=== PATIENT | female | born 1995 | race Caucasian/White ===

== ENCOUNTER 2020-09-23 18:27 | Emergency (ER) | payer OTHER, SELFPAY ==
--- NOTE | ~2020-09-23 | US_ITS ---
EXAMINATION: ULTRASOUND PELVIC, COMPLETE CLINICAL INFORMATION: . Vaginal bleeding. Low back pain. COMPARISON: None. TECHNIQUE: Transvaginal: Used to better visualize pelvic structures Transabdominal: Not adequate visualization Spectral Doppler and color Doppler exam was utilized. LMP: 08/17/2020. Gestational age by LMP is 5 weeks 2 days. KEITH 05/24/2021 FINDINGS: UTERUS: There is a single intrauterine gestational sac. pole is not seen. The yolk sac is present. Mean gestational sac diameter 0.57 cm. This correlates to dating of 5 weeks 1 day. Gestational age by this measurement is 5 weeks 1 day. KEITH 05/25/2021. There is no subchorionic bleed. No fluid collection in the endometrial cavity. ADNEXA: Ovarian vascularity:Doppler demonstrates both arterial and venous vascular flow in the right and left ovary. No evidence of ovarian torsion. Right Ovary: 2.1 x 1.8 x 1.7 cm. Right ovarian volume 3.3 mL Left Ovary: Corpus luteum cyst in left ovary measuring 1.9 x 1.4 x 1.9 cm. Left ovary measures 4.1 x 2 x 2.7 cm. Left ovarian volume 11.1 mL. Cul-de-sac: No Fluid US/US OB transvaginal IMPRESSION: Single intrarenal gestation. Gestational sac and yolk sac present. pole not seen at this time due to early gestational age. Estimated gestational age by this exam is 5 weeks 1 day. KEITH 05/25/2021.
--- NOTE | ~2020-09-23 | US_ITS ---
EXAMINATION: ULTRASOUND PELVIC, COMPLETE CLINICAL INFORMATION: . Vaginal bleeding. Low back pain. COMPARISON: None. TECHNIQUE: Transvaginal: Used to better visualize pelvic structures Transabdominal: Not adequate visualization Spectral Doppler and color Doppler exam was utilized. LMP: 08/17/2020. Gestational age by LMP is 5 weeks 2 days. KEITH 05/24/2021 FINDINGS: UTERUS: There is a single intrauterine gestational sac. pole is not seen. The yolk sac is present. Mean gestational sac diameter 0.57 cm. This correlates to dating of 5 weeks 1 day. Gestational age by this measurement is 5 weeks 1 day. KEITH 05/25/2021. There is no subchorionic bleed. No fluid collection in the endometrial cavity. ADNEXA: Ovarian vascularity:Doppler demonstrates both arterial and venous vascular flow in the right and left ovary. No evidence of ovarian torsion. Right Ovary: 2.1 x 1.8 x 1.7 cm. Right ovarian volume 3.3 mL Left Ovary: Corpus luteum cyst in left ovary measuring 1.9 x 1.4 x 1.9 cm. Left ovary measures 4.1 x 2 x 2.7 cm. Left ovarian volume 11.1 mL. Cul-de-sac: No Fluid US/US OB <= 14 weeks fetus IMPRESSION: Single intrarenal gestation. Gestational sac and yolk sac present. pole not seen at this time due to early gestational age. Estimated gestational age by this exam is 5 weeks 1 day. KEITH 05/25/2021.
[2020-09-23 18:47] VITALS: BP 156/79; PULSE 79; RESP 18; TEMP 36.9; O2SAT 99; BMI 45.6
[2020-09-23 20:14] LABS: MANUAL DIFF FLAG NO
--- NOTE | 2020-09-23 20:15 | ED_ITS ---
HPI - Female Genitourinary General Chief complaint: Urogenital-Female Stated complaint: vag bleed - 5 wks preg Source: patient Mode of arrival: ambulatory Limitations: no limitations History of Present Illness HPI Narrative: 24-year-old female with past medical history of 2 miscarriages presents with lower back pain, vaginal bleeding, and is 5 weeks 4 days . She is anxious and crying. She does not report any chest pain or pressure, shortness of breath, shortness of breath on exertion, palpitations, abdominal distention, edema, dizziness, weakness, lightheadedness, dysuria, hematuria, or any other concerning symptoms. MD elicited complaint: vaginal bleeding and pelvic pain Pertinent past history: prior miscarriages Onset (ago): hour(s) (Several hours) Severity: moderate Severity scale (1-10): 6 Quality of pain: cramping Consistency: intermittent Vaginal bleeding: scant Associated symptoms: back pain Treatment prior to arrival: none Patient : Yes Possible : at home test positive Date of Last Menstrual Period: 08/18/20 Related Data : 3 Para: 0 Total number of abortions (spontaneous and elective): 2 Allergies Allergy/AdvReac Type Severity Reaction Status Date / Time Penicillins Allergy Rash Verified 09/23/20 19:01 Review of Systems Review of Systems: Constitutional: No Fever, No Chills ENT/Mouth: No sore throat, No Rhinorrhea Eyes: No Eye Pain, No Redness Cardiovascular: No Chest Pain, No SOB Respiratory: No Cough, No Sputum, No Wheezing Gastrointestinal: No Nausea, No Vomiting, No Diarrhea, positive abdominal pain, Genitourinary: Positive , positive irregular bleeding, No Dysuria, No Urinary Frequency, positive pelvic pain Musculoskeletal: No Myalgias Skin: No rash Neuro: No Weakness, No Headache Psych: No Anxiety/Panic, No Depression Heme/Lymph: No bruising, No Lymphadenopathy Endocrine: No Polyuria, No Polydipsia Yes all other systems are reviewed and are negative PMFSH Past Medical History : 3 Para: 0 Total number of abortions (spontaneous and elective): 2 Date of Last Menstrual Period: 08/18/20 Social History Social History Advance Directives: No Advance Directives on File: No Physical Exam Vital Signs: Vital Signs: Last Vital Signs Temp 98.9 F 09/23/20 22:22 Pulse 78 09/23/20 22:22 Resp 16 09/23/20 22:22 BP 108/64 09/23/20 22:22 Pulse Ox 99 09/23/20 22:22 Body Mass Index 45.6 Appearance: Alert. Oriented X3. Moderate emotional distress. Eyes: Pupils equal, round and reactive to light. ENT: Pharynx normal. Neck: Normal inspection. Neck supple. CVS: Normal heart rate and rhythm. Pulses normal. Respiratory: No respiratory distress. Breath sounds normal. Abdomen: Soft and nontender. Skin: Skin warm and dry. Normal skin color. Normal skin turgor. Extremities: No lower extremity edema. Neuro: No motor deficit. No sensory deficit. Course Course Course Narrative: 24-year-old female with past medical history of 2 miscarriages presents with vaginal spotting, lower back pain and cramping and is 5 weeks 4 days . States that this is her prior presentation with previous miscarriage. Plan is for CBC, Chem 7, AB0, and transvaginal OB ultrasound. White count is 14.7 which could be normal for , urinalysis is negative, beta quant 2453 consistent with approximately 5 weeks of . ultrasound shows intrauterine sac at approximately. Plan of care is for patient to follow up with Dr Vela, as she is a high-risk with 2 prior miscarriages. Patient verbalized understanding of and agrees to plan of care to discharge home. MDM - Female Genitourinary MDM Narrative Medical decision making narrative: Threatened , ectopic Differential Diagnosis Differential diagnosis: Likely urinary tract infection and cystitis Medical Records Attestation: I reviewed the patient's medical records. Lab Data Attestation: I reviewed the patient's lab results. Result diagrams: 09/23/20 20:02 09/23/20 20:02 Labs: Lab Results 09/23/20 09/23/20 09/23/20 Range/Units 20:02 20:02 20:26 WBC 14.7 H (4.8-10.8) X10*3/uL RBC 4.82 (4.20-5.50) X10*6/uL Hgb 13.9 (12.0-16.0) g/dl Hct 42.2 (37-47) % MCV 87.6 (80-98) fL MCH 28.8 (27.0-33.0) pg MCHC 32.9 (31.0-35.0) g/dl RDW 12.4 (11.0-16.0) % Plt Count 441 H (160-400) X10*3/uL MPV 8.6 L (9.4-12.3) fL Immature Gran % (Auto) 0.9 H (0.0-0.4) % Neut % (Auto) 67.5 (45-73) % Lymph % (Auto) 21.6 (20-40) % [place] % (Auto) 7.1 (2-11) % Eos % (Auto) 2.4 (0-4) % Baso % (Auto) 0.5 (0-2) % Lymph # (Auto) 3.2 (1.2-4.9) X10*3/uL [place] # (Auto) 1.0 (0.1-1.2) X10*3/uL Eos # (Auto) 0.4 (0.0-0.4) X10*3/uL Baso # (Auto) 0.1 (0.0-0.2) X10*3/uL Abs Immat Gran (auto) 0.13 H (0.00-0.03) X10*3/uL Absolute Neuts (auto) 9.9 H (2.0-8.3) X10*3/uL Absolute Nucleated RBC 0.000 (0.0-0.012) X10*3/uL Nucleated RBC % (auto) 0.0 (0.0-0.2) /100WBC Hold Blue Top SEE NOTE Sodium 137 (135-145) mmol/L Potassium 3.9 (3.3-5.1) mmol/L Chloride 103 (96-108) mmol/L Carbon Dioxide 24 (22-29) mmol/L Anion Gap 14 (12-20) BUN 7 L (9-16) mg/dL Creatinine 0.67 (0.5-1.4) mg/dL Estim Creat Clear Calc 176.0 Estimated GFR > 60 Random Glucose 85 (60-115) mg/dL Calcium 9.3 (8.4-10.2) mg/dL Total Bilirubin 0.4 (0.0-1.0) mg/dL AST 24 (5-31) U/L ALT 11 (0-31) U/L Alkaline Phosphatase 69 (39-117) U/L Total Protein 7.5 (6.5-8.0) g/dL Albumin 4.3 (3.5-5.0) g/dL Beta HCG, Quant 2453 mIU/mL Urine Color Urine Appearance Urine pH (5.0-8.0) Ur Specific [place] (1.005-1.025) Urine Protein (NEG-TRACE) MG/DL Urine Glucose (UA) (NEG) MG/DL Urine Ketones (NEG) MG/DL Urine Blood (NEG) Urine Nitrite (NEG) Ur Leukocyte Esterase (NEG) Urine RBC (0) /HPF Urine WBC (0-4) /HPF Ur Squamous Epith Cells /LPF Urine Bacteria /LPF Blood Type 09/23/20 09/23/20 Range/Units 20:27 20:27 WBC (4.8-10.8) X10*3/uL RBC (4.20-5.50) X10*6/uL Hgb (12.0-16.0) g/dl Hct (37-47) % MCV (80-98) fL MCH (27.0-33.0) pg MCHC (31.0-35.0) g/dl RDW (11.0-16.0) % Plt Count (160-400) X10*3/uL MPV (9.4-12.3) fL Immature Gran % (Auto) (0.0-0.4) % Neut % (Auto) (45-73) % Lymph % (Auto) (20-40) % [place] % (Auto) (2-11) % Eos % (Auto) (0-4) % Baso % (Auto) (0-2) % Lymph # (Auto) (1.2-4.9) X10*3/uL [place] # (Auto) (0.1-1.2) X10*3/uL Eos # (Auto) (0.0-0.4) X10*3/uL Baso # (Auto) (0.0-0.2) X10*3/uL Abs Immat Gran (auto) (0.00-0.03) X10*3/uL Absolute Neuts (auto) (2.0-8.3) X10*3/uL Absolute Nucleated RBC (0.0-0.012) X10*3/uL Nucleated RBC % (auto) (0.0-0.2) /100WBC Hold Blue Top Sodium (135-145) mmol/L Potassium (3.3-5.1) mmol/L Chloride (96-108) mmol/L Carbon Dioxide (22-29) mmol/L Anion Gap (12-20) BUN (9-16) mg/dL Creatinine (0.5-1.4) mg/dL Estim Creat Clear Calc Estimated GFR Random Glucose (60-115) mg/dL Calcium (8.4-10.2) mg/dL Total Bilirubin (0.0-1.0) mg/dL AST (5-31) U/L ALT (0-31) U/L Alkaline Phosphatase (39-117) U/L Total Protein (6.5-8.0) g/dL Albumin (3.5-5.0) g/dL Beta HCG, Quant mIU/mL Urine Color YELLOW Urine Appearance CLEAR Urine pH 5.5 (5.0-8.0) Ur Specific [place] >= 1.030 H (1.005-1.025) Urine Protein NEG (NEG-TRACE) MG/DL Urine Glucose (UA) NEG (NEG) MG/DL Urine Ketones NEG (NEG) MG/DL Urine Blood 3+ H (NEG) Urine Nitrite NEG (NEG) Ur Leukocyte Esterase NEG (NEG) Urine RBC 0-2 (0) /HPF Urine WBC 1-4 (0-4) /HPF Ur Squamous Epith Cells 3+ /LPF Urine Bacteria 1+ /LPF Blood Type O Positive Discharge Plan Discharge Clinical Impression: , spontaneous threatened, First trimester bleeding Qualifiers: Weeks of gestation: less than 8 weeks Qualified Code(s): Z3A.01 - Less than 8 weeks gestation of Patient Disposition: Home, Self-Care Instructions: First Trimester (ED), Dysfunctional Uterine Bleeding (ED), Threatened Miscarriage (ED) Additional Instructions: You were evaluated for first-trimester bleeding. ultrasound shows an intrauterine gestational sac that is 5-week-old. Please follow-up with Dr Vela. Please call and make an appointment. Thank you for choosing this emergency department for evaluation. Please follow-up with primary care physician as needed. Return to the emergency department for any new, concerning, or worsening symptoms. Referrals: Alonso Vela MD [Physician] - 2 days (First trimester bleeding, 2 prior miscarriages) Stand Alone Forms: Work/School Release
[2020-09-23 20:16] LABS: Basophils Absolute Auto 0.1 X10*3/uL (0.0-0.2); Basophils Percent Auto 0.5 % (0-2); Eosinophils Absolute Auto 0.4 X10*3/uL (0.0-0.4); Eosinophils Percent Auto 2.4 % (0-4); Hematocrit 42.2 % (37-47); Hemoglobin 13.9 g/dl (12.0-16.0); Imm Gran Abs Auto 0.13 X10*3/uL (0.00-0.03); Imm Gran Pct Auto 0.9 % (0.0-0.4); Lymphocytes Absolute Auto 3.2 X10*3/uL (1.2-4.9); Lymphocytes Percent Auto 21.6 % (20-40); Mean Corpuscular HGB Conc 32.9 g/dl (31.0-35.0); Mean Corpuscular Hemoglobin 28.8 pg (27.0-33.0); Mean Corpuscular Volume 87.6 fL (80-98); Mean Platelet Volume 8.6 fL (9.4-12.3); Monocytes Percent Auto 7.1 % (2-11); Neutrophils Absolute Auto 9.9 X10*3/uL (2.0-8.3); Neutrophils Percent Auto 67.5 % (45-73); Platelet Count 441 X10*3/uL (160-400); Red Blood Count 4.82 X10*6/uL (4.20-5.50); Red Cell Distribution Width 12.4 % (11.0-16.0); White Blood Count 14.7 X10*3/uL (4.8-10.8)
--- NOTE | 2020-09-23 20:28 | PC.NURSE ---
IV established, labs and urine obtained and sent. Pt aware of plan for U/S. Awaiting U/S. Call mullins within reach, continue to monitor.
[2020-09-23 20:44] LABS: Alanine Aminotransferase 11 U/L (0-31); Albumin Level 4.3 g/dL (3.5-5.0); Alkaline Phosphatase 69 U/L (39-117); Anion Gap 14 (12-20); Aspartate Amino Transferase 24 U/L (5-31); Bilirubin Total 0.4 mg/dL (0.0-1.0); Blood Urea Nitrogen 7 mg/dL (9-16); Calcium 9.3 mg/dL (8.4-10.2); Carbon Dioxide 24 mmol/L (22-29); Chloride 103 mmol/L (96-108); Estimated Glomerular Filt Rate > 60; Glucose Random 85 mg/dL (60-115); Potassium 3.9 mmol/L (3.3-5.1); Sodium 137 mmol/L (135-145); Total Protein 7.5 g/dL (6.5-8.0)
[2020-09-23 20:49] LABS: HCG Quantitative 2453 mIU/mL
[2020-09-23 20:52] LABS: Glucose Urine UA NEG (NEG); Leukocyte Esterase Urine NEG (NEG); Nitrite Urine NEG (NEG); PH 5.5 (5.0-8.0); Specific Gravity - Urine >= 1.030 (1.005-1.025); Urine Blood 3+ (NEG); Urine Ketones NEG (NEG); Urine Protein NEG (NEG-TRACE)
[2020-09-23 20:53] LABS: Appearance Urine CLEAR; Color Urine YELLOW
[2020-09-23 21:09] LABS: Bacteria Urine 1+ /LPF; RBC Urine 0-2 /HPF (0); Squamous Epithelial Cell Urine 3+ /LPF
[2020-09-23 22:22] VITALS: BP 108/64; PULSE 78; RESP 16; TEMP 37.2; O2SAT 99
--- NOTE | 2020-09-23 23:06 | PC.NURSE ---
[employer] VICE PRESIDENT at bedside explaining results of U/S and plan to DC home to f/u with MD Veal.
== END 2020-09-23 23:45 | disposition home or self-care (01) ==
PROVIDERS: Emergency Provider Internal Medicine
DX: O20.0 Threatened abortion (principal); Z3A.01 Less than 8 weeks gestation of pregnancy
CPT/HCPCS: 36415; 76801; 76817; 80053; 81001; 84702; 85025; 86900; 86901; 99283; 99284

== ENCOUNTER 2021-02-09 13:37 | Outpatient (REF) | payer OTHER, SELFPAY ==
[2021-02-09 17:43] LABS: HCG Quantitative 753 mIU/mL
== END 2021-02-09 13:38 | disposition home or self-care (01) ==
LOC: HO.LAB 13:37
PROVIDERS: Visit Provider Advanced Practice Midwife
DX: O09.299 Supervision of pregnancy with other poor reproductive or obstetric history, unspecified trimester (principal); O99.210 Obesity complicating pregnancy, unspecified trimester; E66.01 Morbid (severe) obesity due to excess calories; O99.330 Smoking (tobacco) complicating pregnancy, unspecified trimester; F17.210 Nicotine dependence, cigarettes, uncomplicated; Z3A.00 Weeks of gestation of pregnancy not specified; Z87.42 Personal history of other diseases of the female genital tract
CPT/HCPCS: 36415; 84702; 99202

== ENCOUNTER 2021-02-18 14:07 | Outpatient (REF) | payer OTHER, SELFPAY ==
--- NOTE | ~2021-02-18 | US_ITS ---
EXAMINATION: OBSTETRICAL ULTRASOUND, FIRST TRIMESTER HISTORY: 25-year-old with positive test LMP: 12/31/2020 COMPARISON: 09/23/2020 TECHNIQUE: Real time transabdominal imaging with color and M-mode Doppler. FINDINGS: A single, live IUP CRL of 3.2 mm c/w 6.0wks is noted. Heart Rate: 111 beats per minute. Both maternal ovaries are seen and appear normal. GESTATIONAL AGE: 1. GA from LMP: 7.0 wks 2. GA from AUA: 6.0 wks ESTIMATED DATE OF DELIVERY: 1. KEITH from LMP: 10/07/2021 2. KEITH from AUA: 10/14/2021 US/US OB <= 14 weeks fetus IMPRESSION: 1. A single live IUP 2. Size less than dates, CRL is consistent with 6.0 weeks which is 7 days less than her stated gestational age. Recommend adjusting her KEITH to 10/14/2021 based on today's examination. 3. Normal ovaries 4. No free fluid Discussion: I reviewed today's findings and gave her reassurance. She has a history of first trimester spontaneous approximately 6 months ago. I reassured her that after one first trimester miscarriage, her prognosis of having a healthy full-term has not been impacted. NT evaluation in approximately 6 weeks is suggested (not scheduled). Thank you very much for this referral. Total time 20 minutes. The time spent was devoted to counseling the patient about the disease and diagnosis, coordinating care including reviewing her records, pertinent lab data and studies, as well as discussing diagnostic evaluation and workup, plan therapeutic interventions and future disposition of care. This includes any additional research needed to obtain further information in formulating the plan of care of this patient. This note was generated with a voice recognition program. Please excuse any errors which may have been overlooked during my review of this note. Sometimes these errors may affect the content or meaning of a given sentence.
[2021-02-18 15:47] LABS: HCG Quantitative 8292 mIU/mL
== END 2021-02-18 14:08 | disposition home or self-care (01) ==
LOC: HO.US 14:07
PROVIDERS: Visit Provider Advanced Practice Midwife
DX: O09.299 Supervision of pregnancy with other poor reproductive or obstetric history, unspecified trimester (principal); O99.210 Obesity complicating pregnancy, unspecified trimester; O99.330 Smoking (tobacco) complicating pregnancy, unspecified trimester; E66.01 Morbid (severe) obesity due to excess calories; F17.210 Nicotine dependence, cigarettes, uncomplicated; Z87.42 Personal history of other diseases of the female genital tract
CPT/HCPCS: 36415; 76801; 84702

== ENCOUNTER → 2021-03-01 13:57 | Outpatient (BNVA) | payer OTHER, SELFPAY | PROVIDERS: Visit Provider Advanced Practice Midwife | DX: O99.331 Smoking (tobacco) complicating pregnancy, first trimester (principal); Z3A.01 Less than 8 weeks gestation of pregnancy | CPT/HCPCS: 99212 ==

== ENCOUNTER 2021-03-25 13:57 | Outpatient (REF) | payer OTHER, SELFPAY ==
[2021-03-26 01:45] LABS: CT PCR NOT DETECTED (Not Detect.); NG PCR NOT DETECTED (Not Detect.)
== END 2021-03-25 13:58 | disposition home or self-care (01) ==
LOC: HO.LAB 13:57
PROVIDERS: Visit Provider Advanced Practice Midwife
DX: Z34.91 Encounter for supervision of normal pregnancy, unspecified, first trimester (principal); Z3A.11 11 weeks gestation of pregnancy
CPT/HCPCS: 87491; 87591; 88142; 99212

== ENCOUNTER 2021-04-04 09:26 | Outpatient (REF) | payer OTHER, SELFPAY ==
[2021-04-04 12:26] LABS: Hematocrit 37.3 % (37-47); Hemoglobin 12.5 g/dl (12.0-16.0); Mean Corpuscular HGB Conc 33.5 g/dl (31.0-35.0); Mean Corpuscular Hemoglobin 29.3 pg (27.0-33.0); Mean Corpuscular Volume 87.4 fL (80-98); Mean Platelet Volume 8.9 fL (9.4-12.3); Platelet Count 402 X10*3/uL (160-400); Red Blood Count 4.27 X10*6/uL (4.20-5.50); Red Cell Distribution Width 13.1 % (11.0-16.0); White Blood Count 13.5 X10*3/uL (4.8-10.8)
[2021-04-04 12:36] LABS: Glucose 1 Hour PP 50gm Dose 160 mg/dL (60-140)
[2021-04-04 13:03] LABS: Syphilis Screen Nonreactive (Nonreactive)
[2021-04-05 08:18] LABS: HBsAGNum1 0.25 S/CO (0.00-0.99); HIV AB/AG Nonreactive (Nonreactive); HIV Num 1 0.09 S/CO (0.00-0.99); Hepatitis B Surface Antigen Negative (Negative); ~HepC Num1 0.08 S/CO (0.00-0.79); ~Hepatitis C Antibody Nonreactive (Nonreactive)
[2021-04-06 20:56] LABS: Hematocrit 36.9 % (35.0-45.0); Hemoglobin 12.6 g/dL (11.7-15.5); MCH 29.2 pg (27.0-33.0); MCV 85.6 fL (80.0-100.0); RBC 4.31 Million/uL (3.80-5.10); RDW 13.1 % (11.0-15.0)
== END 2021-04-04 09:27 | disposition home or self-care (01) ==
LOC: HO.LAB 09:26
PROVIDERS: Visit Provider Advanced Practice Midwife
DX: Z32.01 Encounter for pregnancy test, result positive (principal)
CPT/HCPCS: 36415; 83020; 85014; 85018; 85027; 85041; 86762; 86780; 86787; 86803; 86850; 86900; 86901; 87340; 87389

== ENCOUNTER 2021-04-08 12:45 | Outpatient (REF) | payer OTHER, SELFPAY ==
--- NOTE | ~2021-04-08 | US_ITS ---
EXAMINATION: OBSTETRICAL ULTRASOUND, FIRST TRIMESTER HISTORY: A 25-year-old at 13.0 weeks of gestation NT screening COMPARISON: 02/18/2021 TECHNIQUE: Real time transabdominal imaging with color and M-mode Doppler. FINDINGS: A single, live IUP CRL of 69.0 mm c/w 13.1wks is noted. Heart Rate: 152 beats per minute. Normal yolk sac seen. NT was 1.8.mm. NB Present The embryo appears sonographically wnl for this GA. Both maternal ovaries are seen and appear normal. GESTATIONAL AGE: 1. Established GA: 13.0 wks 2. GA from AUA: 13.1 wks ESTIMATED DATE OF DELIVERY: 1. Established KEITH: 10/14/2021 2. KEITH from AUA: 10/13/2021 US/US OB 1T nuc measure IMPRESSION: 1. A single live IUP 2. Size equals dates 3. NT of 1.8 mm MFM Consultation: I reviewed the ultrasound findings along with significance of NT measurement. The NT of less than 3mm is generally reassuring. However, the sensitivity for T21 detection is only 60%. I reviewed the availability of serum aneuploidy screening which includes cell-free DNA and placental protein based tests. I discussed the sensitivity, false-positive rate, and other limitations associated with each test. I also reviewed the availability of invasive diagnostic tests that are associated small but definite risk of miscarriage. We also reviewed the differences between screening tests and diagnostic tests. After our discussion, she opted for the First trimester screening that is based on cell-free DNA or non-invasive testing (NIPT). High BMI. The result will be faxed to your office in approximately 7 days. A follow up at 19 to 20 weeks for survey has been scheduled. Thank you very much for this referral. Total time 30 minutes. The time spent was devoted to counseling the patient about the disease and diagnosis, coordinating care including reviewing her records, pertinent lab data and studies, as well as discussing diagnostic evaluation and workup, plan therapeutic interventions and future disposition of care. This includes any additional research needed to obtain further information in formulating the plan of care of this patient. This note was generated with a voice recognition program. Please excuse any errors which may have been overlooked during my review of this note. Sometimes these errors may affect the content or meaning of a given sentence.
== END 2021-04-08 12:46 | disposition home or self-care (01) ==
LOC: HO.US 12:45
PROVIDERS: Visit Provider Advanced Practice Midwife
DX: Z36.82 Encounter for antenatal screening for nuchal translucency (principal)
CPT/HCPCS: 76813

== ENCOUNTER → 2022-10-24 11:29 | Outpatient (BNVA) | payer OTHER, SELFPAY | PROVIDERS: PCP Internal Medicine; Visit Provider Physician Assistant ==

== ENCOUNTER → 2022-10-30 08:03 | Outpatient (BNVA) | payer OTHER, SELFPAY | PROVIDERS: PCP Internal Medicine; Visit Provider Surgery ==

== ENCOUNTER 2022-11-07 08:04 | Outpatient (REF) | payer OTHER, SELFPAY ==
--- NOTE | 2022-11-07 08:23 | ECG_ITS ---
Test Reason : e66.01 Blood Pressure : / mmHG Vent. Rate : 065 BPM Atrial Rate : 065 BPM P-R Int : 180 ms QRS Dur : 096 ms QT Int : 402 ms P-R-T Axes : 058 070 066 degrees QTc Int : 418 ms Normal sinus rhythm with sinus arrhythmia Normal ECG No previous ECGs available Referred By: Lux Graves Electronically Signed By:ERICKSON MANTILLA MD
[2022-11-07 08:41] LABS: MANUAL DIFF FLAG NO
[2022-11-07 09:05] LABS: Basophils Absolute Auto 0.1 X10*3/uL (0.0-0.2); Basophils Percent Auto 0.7 % (0-2); Eosinophils Absolute Auto 0.4 X10*3/uL (0.0-0.4); Hematocrit 40.1 % (37.0-47.0); Imm Gran Abs Auto 0.08 X10*3/uL (0.00-0.03); Imm Gran Pct Auto 0.7 % (0.0-0.4); Lymphocytes Absolute Auto 3.8 X10*3/uL (1.2-4.9); Lymphocytes Percent Auto 30.7 % (20-40); Mean Corpuscular HGB Conc 32.4 g/dl (31.0-35.0); Mean Corpuscular Hemoglobin 27.7 pg (27.0-33.0); Mean Corpuscular Volume 85.5 fL (80.0-98.0); Monocytes Percent Auto 8.1 % (2-11); Neutrophils Percent Auto 56.8 % (45-73); Platelet Count 456 X10*3/uL (160-400); Red Blood Count 4.69 X10*6/uL (4.20-5.50); White Blood Count 12.3 X10*3/uL (4.8-10.8)
[2022-11-07 09:15] LABS: Estimated Average Glucose 100 mg/dL; Hemoglobin A1c % 5.1 %
[2022-11-07 09:49] LABS: Alanine Aminotransferase 8 U/L (0-31); Albumin Level 3.9 g/dL (3.5-5.0); Alkaline Phosphatase 64 U/L (39-117); Anion Gap 12 (12-20); Aspartate Amino Transferase 17 U/L (5-31); Bilirubin Total 0.3 mg/dL (0.0-1.0); Blood Urea Nitrogen 10 mg/dL (9-16); C Reactive Protein 0.63 mg/dL (< or = 0.50); Calcium 9.1 mg/dL (8.4-10.2); Carbon Dioxide 23 mmol/L (22-29); Chloride 109 mmol/L (96-108); Cholesterol 137 mg/dL; Estimated Glomerular Filt Rate > 60; Glucose Random 103 mg/dL (60-115); HDL Cholesterol 32 mg/dL; Iron 35 mcg/dL (30-160); LDL Cholesterol Calculated 81 mg/dl; Percent Iron Saturation 12 % (15-50); Potassium 4.5 mmol/L (3.3-5.1); Sodium 139 mmol/L (135-145); Total Iron Binding Capacity 286 mcg/dL (228-428); Total Protein 6.7 g/dL (6.5-8.0); Triglycerides 120 mg/dL; Unsaturated Iron Binding 251 ug/dL
[2022-11-07 10:12] LABS: Ferritin 25 ng/mL (10-122); Folate 11.8 ng/mL (> or = 4.0); TSH reflex Free T4 0.74 uIU/mL (0.32-4.0); Vitamin B12 601 pg/mL (200-900); Vitamin D 25-OH Total 21.9 ng/mL (>30)
[2022-11-07 10:50] LABS: Insulin 7 uU/mL (2-29)
[2022-11-08 17:44] LABS: Calcium (PTHI) 9.4 mg/dL (8.6-10.2); PTHI 57 pg/mL (16-77)
[2022-11-10 11:17] LABS: H Pylori Breath Test Negative (Negative)
[2022-11-11 01:03] LABS: Zinc 62 mcg/dL (60-130)
[2022-11-11 16:53] LABS: Vitamin B1 10 nmol/L (8-30)
[2022-11-13 17:38] LABS: Vitamin A 41 mcg/dL (38-98)
== END 2022-11-07 08:05 | disposition home or self-care (01) ==
LOC: HO.XRAY 08:04
PROVIDERS: Surgery; PCP Internal Medicine; Visit Provider Physician Assistant Surgical
DX: E66.01 Morbid (severe) obesity due to excess calories (principal); K21.9 Gastro-esophageal reflux disease without esophagitis; J45.909 Unspecified asthma, uncomplicated
CPT/HCPCS: 36415; 80053; 80061; 82306; 82607; 82728; 82746; 83013; 83036; 83525; 83540; 83970; 84425; 84443; 84590; 84630; 85025; 86140; 93005; 99211

== ENCOUNTER → 2022-11-22 08:04 | Outpatient (BNVA) | payer OTHER, SELFPAY | PROVIDERS: PCP Internal Medicine; Visit Provider Surgery | DX: E66.01 Morbid (severe) obesity due to excess calories (principal); K21.9 Gastro-esophageal reflux disease without esophagitis; J45.909 Unspecified asthma, uncomplicated ==

== ENCOUNTER → 2022-11-23 12:05 | Outpatient (BNVA) | payer OTHER, SELFPAY | PROVIDERS: PCP Internal Medicine; Visit Provider Counselor Mental Health ==

== ENCOUNTER → 2022-12-14 11:00 | Outpatient (BNVA) | payer OTHER, SELFPAY | PROVIDERS: PCP Internal Medicine; Visit Provider Counselor Mental Health ==